=== PATIENT | female | born 1990 | race Caucasian/White ===

== ENCOUNTER 2022-11-11 08:27 | Emergency (ER) | payer BC, MEDICAID ==
[~2022-11-11] VITALS: Ht 175.3 cm; Wt 100.0 kg
[~2022-11-11 08:27] MED LIST: HYDR-4383 PO; NAPR-1154 PO
[2022-11-11 08:30] VITALS: BP 145/99
[2022-11-11] MEDS ORDERED: HYDR-3965 PO (09:14)
[2022-11-11] MEDS ORDERED: AMOX500C2 PO (09:14)
[2022-11-11] MEDS ORDERED: ketorolac trometh inj. 60 MG/2 ML VIAL IM ONE (09:15)
== END 2022-11-11 10:01 | disposition home or self-care (01) ==
LOC: ER 08:28
DX: Z79.899 Other long term (current) drug therapy (principal)
CPT/HCPCS: 96372; 99283; J1885

== ENCOUNTER → 2023-10-03 | Emergency (ER) | payer MEDICAID ==
[~2023-10-03] VITALS: Ht 175.3 cm; Wt 95.5 kg
[~2023-10-03] MED LIST changes: +OXYC-658 PO; +PENI500T2 PO; +ketorolac trometh inj. 60 MG/2 ML VIAL IM ONE
[2023-10-03 06:46] VITALS: TEMP 98.4
[2023-10-03 08:12] VITALS: BP 154/90; PULSE 65; RESP 16; O2SAT 100
--- NOTE | 2023-10-03 10:44 | NUR ---
I AGREE WITH THE ASSESSMENT PER Debo CAREY LVN.
== END | disposition home or self-care (01) ==
LOC: ER 03:26
DX: K04.7 Periapical abscess without sinus (principal); Z79.899 Other long term (current) drug therapy
CPT/HCPCS: 96372; 99283; J1885